=== PATIENT | female | born 1990 | race Caucasian/White ===

== ENCOUNTER 2023-04-09 20:10 | Observation (INO) | payer OTHER, SELFPAY ==
[2023-04-09 20:32] LABS: Absolute Lymphocytes (CBC) 1.5 K/uL (0.7-4.9); Lymphocytes % 20.5 % (15.3-44.8); MCV 84.8 fL (80-100); MPV 8.6 fL (7.6-11.3)
[2023-04-09] MEDS ORDERED: NA CHLORIDE 0.9% 1,000 ML ONE (20:54)
[2023-04-09] MEDS ORDERED: ONDANSETRON 4 MG/2 ML VIAL ONE (20:54)
[2023-04-09 21:05] LABS: ALT/SGPT 21 U/L (13-56); AST/SGOT 23 U/L (15-37); Albumin 3.8 g/dL (3.4-5.0); Alkaline Phosphatase 75 U/L (45-117); BUN Blood Urea Nitrogen 9 mg/dL (7-18); Bicarbonate 28 mEq/L (21-32); Bilirubin Direct 0.2 mg/dL (0-0.2); Bilirubin Indirect, Calculated 0.6 mg/dL (0.2-0.8); Bilirubin Total 0.8 mg/dL (0.2-1.0); Glomerular Filtration Rate 77 ml/min (=/>90); Glucose Level 96 mg/dL (74-106); Potassium 3.1 mEq/L (3.5-5.1); Sodium Level 146 mEq/L (136-145)
--- NOTE | 2023-04-09 21:09 | RAD REPORT ---
EXAM DESCRIPTION: CT - Head Brain Wo Cont - 04/09/2023 9:04 pm CLINICAL HISTORY: CONFUSED COMPARISON: HEAD BRAIN W O CONTRAST dated 09/11/2009 TECHNIQUE: All CT scans are performed using dose optimization technique as appropriate and may inclu de automated exposure control or mA/KV adjustment according to patient size. FINDINGS: No intracranial hemorrhage, hydrocephalus or extra-axial fluid collection.No areas of brai n edema or evidence of midline shift. The paranasal sinuses and mastoids are clear. The calvarium is intact. IMPRESSION: No acute intracranial abnormality.
[2023-04-09] MEDS ORDERED: NS KCL 20MEQ 1,000 ML IV ONE (21:47)
[2023-04-09] MEDS ORDERED: KCL 20 MEQ/100 mL IVPB 100 ML IV ONE (21:48)
[2023-04-09] MEDS ORDERED: NA CHLORIDE 0.9% 500 ML ONE (21:49)
[2023-04-09] MEDS ORDERED: NALOXONE HCL 2 MG/2 ML VIAL ONE (22:20)
[2023-04-09 22:21] LABS: Specific Gravity 1.026 (1.005-1.030)
[2023-04-09 22:22] LABS: Specific Gravity 1.026 (1.005-1.030); Urine Bacteria None Seen /HPF (<20); Urine Bilirubin NEGATIVE (Negative); Urine Blood Negative (Negative); Urine Clarity Clear (Clear); Urine Color Yellow (Yellow); Urine Glucose NEGATIVE (Negative); Urine Mucus Slight /HPF (None Seen); Urine Protein TRACE (Negative); Urine RBC <5 /HPF (None Seen); Urine Urobilinogen Normal (Normal); Urine pH 6.5 (5.0-7.0)
[2023-04-09] MEDS ORDERED: LORazepam 2 MG/ML VIAL ONE (22:30)
[2023-04-09 22:31] LABS: Barbiturates NEGATIVE (NEGATIVE); Benzodiazepines NEGATIVE (NEGATIVE); Cocaine NEGATIVE (NEGATIVE); METHAMPHETAM POSITIVE (NEGATIVE); Methadone NEGATIVE (NEGATIVE); Opiates NEGATIVE (NEGATIVE); Phencyclidine NEGATIVE (NEGATIVE); THC Cannibis POSITIVE (NEGATIVE)
[2023-04-09] MEDS ORDERED: ZIPRASIDONE MESYLA 20 MG/VIAL IM ONE (22:32)
[2023-04-09] MEDS ORDERED: WATER FOR INJ,STERILE 10 ML ONE (22:32)
--- NOTE | 2023-04-09 23:16 | P.HP ---
Certification for Inpatient Patient admitted to: Observation With expected LOS: <2 Midnights Patient will require the following post-hospital care: None Practitioner: I am a practitioner with admitting privileges, knowledge of patient current condition, hospital course, and medical plan of care. Services: Services provided to patient in accordance with Admission requirements found in Title 42 Section 412.3 of the Code of Federal Regulations Patient History Date of Service: 04/10/23 Reason for admission: altered mental status History of Present Illness: 32 yrs old Female presents to ER via EMS for drug intoxication, 32-year-old female presents with EMS for agitation and mental status changes. Family at bedside is primary historian reports she was pulled over for a traffic stop by the police at which time she proceeded to swallow a handful of some sort of pills. Patient refused to say what pills they were. After that patient developed agitation and then ultimately somnolence falling asleep on arrival to the emergency room. When patient is awake and she becomes agitated has incoherent. She was not able to provide HPI or review of systems. Patient's sister and is at bedside states that patient has a history of Xanax, Adderall, and history of methamphetamine abuse. Per family, Patient is reportedly losing weight recently and not acting herself. Most of medical record from ER documentation due to patient sedation. ER course Laboratory evaluation Hypernatremia at 146, potassium 3.1, CBC unremarkable, UA unremarkable, urine drug screen presumptive positive for methamphetamines, marijuana, because the patient responded to Narcan suspect fentanyl overdose. EKG sinus bradycardia at the rate of 50, EKG time 2028. Right atrial enlargement, and there is LVH. Otherwise normal EKG with no ectopy. VS Systolic 130's/70's, HR 50's, RR 15, 98% RA, she was given 1 L of normal saline, Zofran, Narcan 2 mg of which she responded with was very erratic, ER gave Ativan 2 mg, and Geodon 20 mg IM x1 Allergies No Known Allergies Allergy (Unverified 11/19/11 10:01) Home Medications: Vits W-Ca,Fe,FA(<1Mg) [] 1 PO DAILY 11/19/11 - Past Medical/Surgical History Diabetic: No -: HPI limited due to patient's sedation -: Polysubstance use -: Marijuana use -: Vape Past Surgical History: Reviewed- Non-Contributory - Social History Smoking therapy provided: No (Vape) Alcohol use: No CD- Drugs: No Caffeine use: Yes Review of Systems is unable to be obtained (Patient sedation) Physical Examination - Physical Exam General: Other (sedated, eyes open to verbal stimuli) HEENT: Atraumatic, Normocephalic Neck: 2+ carotid pulse no bruit, JVD not distended Respiratory: Clear to auscultation bilaterally, Normal air movement Cardiovascular: No edema, Normal pulses (sinus bradycardia) Capillary refill: <2 Seconds Gastrointestinal: Normal bowel sounds, No tenderness Musculoskeletal: No clubbing, No swelling Integumentary: No breakdown Neurological: Other (sedated) - Studies Laboratory Data (last 24 hrs) 04/09/23 20:20: WBC 7.10, Hgb 12.7, Hct 39.0, Plt Count 226 04/09/23 20:20: Sodium 146 H, Potassium 3.1 L, BUN 9, Creatinine 0.99, Glucose 96, Total Bilirubin 0.8, AST 23, ALT 21, Alkaline Phosphatase 75 Assessment and Plan - Plan Assessment plan Drug intoxication suspected fentanyl overdose-responded to Narcan in the ED Polysubstance use-presumptive positive for methamphetamines, THC, Sinus bradycardia Mild hyponatremia Mild hypokalemia DVT prophylaxis Assessment plan Drug intoxication suspected fentanyl overdose-O2 2 L keep sats greater than 92%, telemetry Polysubstance use-fall precautions Sinus bradycardia-telemetry DVT prophylaxis-Lovenox Diet n.p.o. Full code DVT Lovenox Discharge Plan: Home Plan to discharge in: 24 Hours - Advance Directives Does patient have a Living Will: No Does patient have a Durable POA for Healthcare: No - Code Status/Comfort Care Code Status Assessed: Yes Code Status: Full Code Physician Review: Patient Assessed, Agree with Above Assessment and Plan Critical Care: No Time Spent Managing Pts Care (In Minutes): 55
[2023-04-09] MEDS ORDERED: ONDANSETRON 4 MG/2 ML VIAL IV PRN (23:21)
--- NOTE | 2023-04-09 23:21 | EDPHYS ---
Physician Documentation [facility] Name: Mica Shultz Age: 32 yrs Sex: Female : 1990 Arrival Date: 04/09/2023 Time: 20:10 Bed 2 Private MD: ED Physician Delon Edwards HPI: 04/09 20:17 This 32 yrs old Female presents to ER via Unassigned with complaints of drug sp4 intoxication . 21:04 32-year-old female presents with EMS for agitation and mental status changes. Patient sp4 was pulled over for a traffic stop by the police at which time she proceeded to swallow a handful of some sort of pills. Patient would not say what pills they were. After that patient developed agitation and then ultimately somnolence falling asleep on arrival to the emergency room. When patient is awake and she becomes agitated has incoherent speech and is not able to provide HPI or review of systems. Patient's sister states that patient has a history of Xanax use also history of prescription Adderall use and also history of methamphetamine abuse. Patient is reportedly losing weight recently and not acting herself.. Historical: - Allergies: 20:23 No Known Allergies; ha1 - PMHx: 20:23 None; ha1 - Immunization history:: Adult Immunizations unknown. - Social history:: Patient/guardian denies using alcohol, street drugs, IV drugs, caffeine, over the counter diet medications, tobacco products, Smoking status: unknown. - Family history:: not pertinent. ROS: 21:04 Constitutional: full ROS unavailable secondary to agitation and mental status changes sp4 21:04 All other systems are negative. 21:04 Unable to obtain ROS due to altered mental status. Exam: 21:04 Constitutional: This is a well developed, thin female with a signs of weight loss, sp4 arrives somnolence but on awakening becomes agitated and is incoherent. Patient slumps back to sleep. Vital signs are stable on arrival. Oxygenation is stable. Patient not cooperative for full exam but is moving all extremities. Head/Face: Normocephalic, atraumatic. Eyes: Pupils equal round and reactive to light, pupils are constricted but reactive. Further exam is not possible. ENT: Nares patent. No nasal discharge, no septal abnormalities noted. Tympanic membranes are normal and external auditory canals are clear. Oropharynx with no redness, swelling, or masses, exudates, or evidence of obstruction, uvula midline. Mucous membranes moist. There is poor dentition Neck: Trachea midline, no thyromegaly or masses palpated, and no cervical lymphadenopathy. Supple, full range of motion without nuchal rigidity, or vertebral point tenderness. Chest/axilla: Normal chest wall appearance and motion. Nontender with no deformity. No lesions are appreciated. Cardiovascular: Regular bradycardia with a normal S1 and S2. No gallops, murmurs, or rubs. Normal PMI, no JVD. No pulse deficits. Respiratory: Lungs have equal breath sounds bilaterally, clear to auscultation and percussion. No rales, rhonchi or wheezes noted. No increased work of breathing, no retractions or nasal flaring. Abdomen/GI: Soft, non-tender, with normal bowel sounds. No distension or tympany. No guarding or rebound. No evidence of tenderness throughout. Back: No spinal tenderness. No costovertebral tenderness. Skin: Warm, dry with normal turgor. Normal color with no rashes, no lesions, and no evidence of cellulitis. MS/ Extremity: Pulses equal, no cyanosis. Neurovascular intact. Full, normal range of motion. Neuro: Patient presents with initial agitation and then developed somnolence. Full exam is not possible. Patient is moving all extremities grossly there is no sign of lateralizing neurologic deficits. Patient is incoherent in her speech 21:04 ECG was reviewed by the Attending Physician. The ED is sinus bradycardia at the rate of sp4 50, EKG time 2028. Right atrial enlargement, and there is LVH. Otherwise normal EKG with no ectopy. Vital Signs: 20:14 BP 139 / 74; Pulse 52; Resp 15 S; Temp 97.6; Pulse Ox 98% on R/A; Weight 45 kg; Height ha1 5 ft. 3 in. ; 21:00 BP 175 / 85; Pulse 54; Resp 13 S; Pulse Ox 100% on 2 lpm NC; ha1 21:30 BP 151 / 91; Pulse 57; Resp 13 S; Pulse Ox 100% on 2 lpm NC; ha1 22:10 BP 174 / 94; Pulse 56; Resp 13 S; Pulse Ox 100% on 2 lpm NC; ha1 22:49 BP 161 / 87; Pulse 60; Resp 18; Pulse Ox 100% on 2 lpm NC; ha1 23:10 BP 163 / 100; Pulse 75; Resp 15 S; Pulse Ox 100% on 2 lpm NC; ha1 23:30 BP 158 / 96; Pulse 63; Resp 18 S; Pulse Ox 100% on R/A; ha1 20:14 Body Mass Index 17.57 (45.00 kg, 160.02 cm) [facility] MDM: 20:18 Patient medically screened. sp4 23:18 Data reviewed: vital signs, nurses notes, EMS record, lab test result(s), EKG, sp4 radiologic studies, CT scan. Consideration of Admission/Observation Patient was admitted/placed on observation. Escalation of care including admission/observation considered. Management of patient was discussed with the following: Hospitalist: Discussed with admission team. ED course: Patient was given naloxone 2 mg IV and became very agitated after naloxone administration. Patient exhibited signs of opiate withdrawal. With suspect patient has ingested some fentanyl or some other opiate prior to arrival to the ER. Patient had to be given some lorazepam and Geodon for acute agitation associated with opiate withdrawal. Patient at this time should be admitted to the hospital for monitoring on telemetry floor with the nasal cannula oxygen support. Patient overall is hemodynamically stable.. . 04/09 20:18 Order name: Acetaminophen; Complete Time: : [facility] 04/09 20:18 Order name: Basic Metabolic Panel; Complete Time: : [facility] 04/09 20:18 Order name: CBC with Diff; Complete Time: 20:52 [facility] 04/09 20:18 Order name: ETOH Level; Complete Time: : [facility] 04/09 20:18 Order name: Hepatic Function; Complete Time: : [facility] 04/09 20:18 Order name: PT-INR [facility] 04/09 20:18 Order name: Test, Urine; Complete Time: 23:05 [facility] 04/09 20:18 Order name: Ptt, Activated [facility] 04/09 20:18 Order name: Salicylate; Complete Time: 21:31 [facility] 04/09 20:18 Order name: Urinalysis w/ reflexes; Complete Time: 23:05 [facility] 04/09 20:18 Order name: Urine Drug Screen; Complete Time: 23:05 [facility] 04/09 21:17 Order name: COVID-19 SARS RT PCR rv1 04/09 21:20 Order name: SARS-COV-2 RT PCR; Complete Time: 23:05 EDMS 04/09 23:23 Order name: Urinalysis w/ reflexes EDMS 04/09 23:23 Order name: CBC with Automated Diff EDMS 04/09 23:23 Order name: CBC with Automated Diff; Complete Time: 07:53 EDMS 04/09 23:23 Order name: Comprehensive Metabolic Panel EDMS 04/09 23:23 Order name: Comprehensive Metabolic Panel; Complete Time: 07:53 EDMS 04/09 23:23 Order name: Magnesium EDMS 04/09 23:23 Order name: Magnesium; Complete Time: 07:53 EDMS 04/09 23:23 Order name: Phosphorus EDMS 04/09 23:23 Order name: Phosphorus; Complete Time: 07:53 EDMS 04/09 20:34 Order name: CT Head Brain wo Cont; Complete Time: 21:31 sp4 04/09 20:18 Order name: EKG; Complete Time: 20:18 sp4 04/09 23:23 Order name: NPO EDAK 04/09 20:18 Order name: EKG - Nurse/Tech; Complete Time: 20:32 sp4 04/09 20:18 Order name: IV Saline Lock; Complete Time: 20:32 sp4 04/09 20:18 Order name: Labs collected and sent; Complete Time: 20:32 sp4 04/09 20:18 Order name: Montes; Complete Time: 22:51 sp4 EC:04 Rate is 50 beats/min. Rhythm is regular, Sinus bradycardia. QRS [place] is Normal. No ST sp4 changes noted. Clinical impression: No evidence of ischemia. Interpreted by me. Administered Medications: 20:47 Drug: NS 0.9% IV 1000 ml Route: IV; Rate: 1 bolus; Site: left forearm; ha1 20:48 Drug: Ondansetron IVP 4 mg Route: IVP; Site: left forearm; ha1 22:00 Drug: Potassium Chloride IV 20 mEq Route: IV; Rate: calculated rate; Site: left ha1 antecubital; 22:16 Drug: Naloxone IVP 2 mg Route: IVP; Site: left antecubital; 1 22:26 Drug: Ativan IVP 2 mg Route: IVP; Site: left antecubital; jb4 22:29 Drug: Geodon IM 20 mg Route: IM; Site: left vastus lateralis; ha1 23:45 Drug: NS 0.45 % with KCl IV 20 mEq/L 1000 ml Route: IV; Rate: 125 ml/hr; Site: left ha1 antecubital; Disposition Summary: 04/09/23 23:20 Hospitalization Ordered Hospitalization Status: Observation sp4 Provider: Aron Alves sp4 Condition: Fair sp4 Problem: new sp4 Symptoms: have improved sp4 Bed/Room Type: Standard sp4 Location: Telemetry/MedSurg (Inpatient)(04/10/23 23:34) mw Room Assignment: (04/10/23 23:34) Diagnosis - Opiate withdrawal, acute drug overdose, polysubstance abuse, methamphetamine abuse, sp4 cannabis abuse, altered mental status, psychomotor agitation requiring sedation Forms: - Medication Reconciliation Form sp4 - SBAR form sp4 Signatures: Dispatcher [employer] EDMS Rin Edwards RN RN mw Garcia, Cindy, RN RN cg Bryson, James, RN RN jb4 Millie Caraballo MD MD sd2 Shaye Ervin RN RN ha1 Delon Edwards MD MD sp4 Corrections: (The following items were deleted from the chart) 21:20 20:34 SARS-COV-2 Antigen Rapid+I.LAB.BRZ ordered. EDMS EDMS 23:35 23:20 Telemetry/MedSurg (observation) sp4 23:35 23:20 sp4 04/10 23:34 0712 23:35 BR ER HOLD cg 04/10 23:34 0712 23:35 ERHOLD- cg 04/10 23:34 23:34 Intensive Care Unit mw 23:34 23:34 8- mw mw
--- NOTE | 2023-04-09 23:21 | ER ---
Nurse's Notes [facility] Name: Mica Shultz Age: 32 yrs Sex: Female : 1990 Arrival Date: 04/09/2023 Time: 20:10 Bed 2 Private MD: Diagnosis: Opiate withdrawal, acute drug overdose, polysubstance abuse, methamphetamine abuse, cannabis abuse, altered mental status, psychomotor agitation requiring sedation Presentation: 04/09 20:14 Chief complaint: EMS states: 32 year old female got stopped by the police just like an ha1 hour ago. When the gift officer went into his car with her information the patient swallow a bunch of pills that she had in her car. we do not know what type of pills she took. Her vitals has been stable but her pupils are very dilated. Altered mental status. 20:14 Ebola Screen: No symptoms or risks identified at this time. Initial Sepsis Screen: Does ha1 the patient meet any 2 criteria? No. Patient's initial sepsis screen is negative. Does the patient have a suspected source of infection? No. Patient's initial sepsis screen is negative. Risk Assessment: Do you want to hurt yourself or someone else? Unable to obtain. Onset of symptoms was April 09, 2023. 20:14 Method Of Arrival: EMS: [facility] ha1 20:14 Acuity: SUZETTE 2 ha1 20:14 Coronavirus screen: Vaccine status:. ha1 Triage Assessment: 20:14 General: Appears uncomfortable, unkempt, malnourished, Behavior is agitated, anxious, ha1 combative. 20:14 Pain: Unable to use pain scale. FLACC scale score is 0 out of 10. Neuro: Level of ha1 Consciousness is awake, lethargic, Oriented to person. Cardiovascular: Heart tones S1 S2 present Patient's skin is warm and dry. Rhythm is sinus bradycardia. Respiratory: Airway is patent Respiratory effort is even, unlabored, Respiratory pattern is regular, symmetrical. GI: No signs and/or symptoms were reported involving the gastrointestinal system. Abdomen is flat, non-distended. : No signs and/or symptoms were reported regarding the genitourinary system. Derm: Skin is pale. Musculoskeletal: Circulation, motion, and sensation intact. Range of motion: intact in all extremities. Historical: - Allergies: 20:23 No Known Allergies; ha1 - PMHx: 20:23 None; ha1 - Immunization history:: Adult Immunizations unknown. - Social history:: Patient/guardian denies using alcohol, street drugs, IV drugs, caffeine, over the counter diet medications, tobacco products, Smoking status: unknown. - Family history:: not pertinent. Screenin:14 [facility] ED Fall Risk Assessment (Adult) History of falling in the last 3 months, ha1 including since admission Confusion or Disorientation Yes (5 pts) Intoxicated or Sedated Yes (3 pts) Impaired Gait No (0 pts) Mobility Assist Device Used No (0 pt) Altered Elimination Yes (1 pt) Score/Fall Risk Level 3 or more points = High Risk Oriented to surroundings, Maintained a safe environment, Educated pt \T\ family on fall prevention, incl call for assistance when getting out of bed, Assessed \T\ reinforced patient's understanding of fall precautions, Hourly rounding (assess needs \T\ fall precautionary measures) done. Nutritional screening: No deficits noted. Tuberculosis screening: No symptoms or risk factors identified. 04/10 00:13 Abuse screen:. ha1 Assessment: 04/09 20:14 Reassessment: see triage assessment. ha1 21:10 Reassessment: Patient and/or family updated on plan of care and expected duration. Pain ha1 level reassessed. eyes closed. family members at the bedside. 21:10 General: Appears comfortable, Behavior is calm. Respiratory: Airway is patent ha1 Respiratory effort is even, unlabored, Respiratory pattern is regular, symmetrical. 22:10 Reassessment: combative trying to pull her IV. Notified Dr. Silverman. ha1 22:10 Neuro: Level of Consciousness is awake. Respiratory: Airway is patent Respiratory ha1 effort is even, unlabored, Respiratory pattern is regular, symmetrical. 23:00 Reassessment: eyes closed. Respiratory: Airway is patent Respiratory effort is even, ha1 unlabored, Respiratory pattern is regular, symmetrical. Vital Signs: 20:14 BP 139 / 74; Pulse 52; Resp 15 S; Temp 97.6; Pulse Ox 98% on R/A; Weight 45 kg; Height ha1 5 ft. 3 in. ; 21:00 BP 175 / 85; Pulse 54; Resp 13 S; Pulse Ox 100% on 2 lpm NC; ha1 21:30 BP 151 / 91; Pulse 57; Resp 13 S; Pulse Ox 100% on 2 lpm NC; ha1 22:10 BP 174 / 94; Pulse 56; Resp 13 S; Pulse Ox 100% on 2 lpm NC; ha1 22:49 BP 161 / 87; Pulse 60; Resp 18; Pulse Ox 100% on 2 lpm NC; ha1 23:10 BP 163 / 100; Pulse 75; Resp 15 S; Pulse Ox 100% on 2 lpm NC; ha1 23:30 BP 158 / 96; Pulse 63; Resp 18 S; Pulse Ox 100% on R/A; ha1 20:14 Body Mass Index 17.57 (45.00 kg, 160.02 cm) ha1 ED Course: 20:14 Patient arrived in ED. rv1 20:14 Arm band placed on right wrist. ha1 20:14 Patient has correct armband on for positive identification. Placed in gown. Bed in low ha1 position. Call light in reach. Side rails up X2. 20:14 Maintain EMS IV. Dressing intact. Good blood return noted. Site clean \T\ dry. Gauge \T\ llanes 1 site: 20 left forearm. 20:17 Delon Edwards MD is Attending Physician. sp4 20:23 Triage completed. ha1 21:06 CT Head Brain wo Cont In Process Unspecified. EDMS 22:00 Montes cath inserted, using sterile technique, 18 Fr., by la, balloon inflated, to ha1 gravity drainage, urine specimen collected. 23:19 Aron Alves MD is Hospitalizing Provider. sp4 04/10 01:00 No provider procedures requiring assistance completed. Patient admitted, IV remains in ha1 place. 04:31 Shaye Ervin RN is Primary Nurse. ha1 04/11 00:41 Provided Education on: HEALTHY LIFESTYLE. rv Administered Medications: 04/09 20:47 Drug: NS 0.9% IV 1000 ml Route: IV; Rate: 1 bolus; Site: left forearm; ha1 20:48 Drug: Ondansetron IVP 4 mg Route: IVP; Site: left forearm; ha1 22:00 Drug: Potassium Chloride IV 20 mEq Route: IV; Rate: calculated rate; Site: left ha1 antecubital; 22:16 Drug: Naloxone IVP 2 mg Route: IVP; Site: left antecubital; ha1 22:26 Drug: Ativan IVP 2 mg Route: IVP; Site: left antecubital; jb4 22:29 Drug: Geodon IM 20 mg Route: IM; Site: left vastus lateralis; ha1 23:45 Drug: NS 0.45 % with KCl IV 20 mEq/L 1000 ml Route: IV; Rate: 125 ml/hr; Site: left ha1 antecubital; Medication: 04/10 01:00 VIS not applicable for this client. ha1 Outcome: 04/09 23:20 Decision to Hospitalize by Provider. sp4 04/10 01:00 Admitted to ER Hold. Please see [facility] for further documentation. ha1 Condition: stable Discharge instructions given to patient, family, Instructed on the need for admit, Demonstrated understanding of instructions. 04/11 00:42 Patient left the ED. rv Signatures: Dispatcher [employer] EDMS John Yates RN RN jb4 Irineo Patterson RN RN rv Shaye Ervin RN RN ha1 Dinorah Gray rv1 Delon Edwards MD MD sp4 Corrections: (The following items were deleted from the chart) 04/10 00:46 04/09 20:14 Chief complaint: EMS states: 32 year old female got stopped by the police ha1 just like an hour ago. When the gift officer went into his car with her information the patient swallow a bunch of pills that she had in her car. we do not know what type of pills she took. Her vitals has been stable but her pupils are very dilated. ha1
[2023-04-10 01:26] VITALS: BMI 17.2
[2023-04-10 02:14] LABS: Absolute Lymphocytes (CBC) 1.4 K/uL (0.7-4.9); Lymphocytes % 21.3 % (15.3-44.8); MCV 85.5 fL (80-100); RBC Red Blood Cell Count 4.33 M/uL (3.86-4.86)
[2023-04-10 02:22] LABS: Albumin 3.3 g/dL (3.4-5.0); Bilirubin Total 0.5 mg/dL (0.2-1.0); Magnesium 2.2 mg/dL (1.6-2.4); Phosphorus 3.1 mg/dL (2.5-4.9); Potassium 4.1 mEq/L (3.5-5.1); Protein, Total 6.1 g/dL (6.4-8.2)
[2023-04-10 03:14] LABS: Protime INR ND
[2023-04-10] MEDS ORDERED: ENOXAPARIN 40 MG/0.4 ML SQ SCH (09:00)
--- NOTE | 2023-04-10 15:44 | EKG ---
Test Date: 2023-04-09 Test Time: 20:29:26 Curriculum Supervisor: ELIOT MEASUREMENT RESULTS: Intervals: Rate: 50 NH: 102 QRSD: 94 QT: 508 QTc: 463 [place]: P: 77 NH: 102 QRS: 89 T: 59 INTERPRETIVE STATEMENTS: Sinus bradycardia with short NH Right atrial enlargement Moderate voltage criteria for LVH, may be normal variant Borderline ECG No previous ECG available for comparison Electronically Signed On 04-10-23 15:43:16 CDT by Blayne Odell
[2023-04-11 03:44] VITALS: TEMP 97.6
[2023-04-11 03:46] VITALS: O2SAT 100
--- NOTE | 2023-04-11 03:46 | P.DS ---
Admission Date: 04/09/23 Discharge Date: 04/11/23 Disposition: ROUTINE DISCHARGE Discharge Condition: GOOD Reason for Admission: altered mental status Brief History of Present Illness: 32 yrs old Female presents to ER via EMS for drug intoxication, 32-year-old female presents with EMS for agitation and mental status changes. Family at bedside is primary historian reports she was pulled over for a traffic stop by the police at which time she proceeded to swallow a handful of some sort of pills. Patient refused to say what pills they were. After that patient developed agitation and then ultimately somnolence falling asleep on arrival to the emergency room. When patient is awake and she becomes agitated has incoherent. She was not able to provide HPI or review of systems. Patient's sister and is at bedside states that patient has a history of Xanax, Adderall, and history of methamphetamine abuse. Per family, Patient is reportedly losing weight recently and not acting herself. Most of medical record from ER documentation due to patient sedation. ER course Laboratory evaluation Hypernatremia at 146, potassium 3.1, CBC unremarkable, UA unremarkable, urine drug screen presumptive positive for methamphetamines, marijuana, because the patient responded to Narcan suspect fentanyl overdose. EKG sinus bradycardia at the rate of 50, EKG time 2028. Right atrial enlargement, and there is LVH. Otherwise normal EKG with no ectopy. VS Systolic 130's/70's, HR 50's, RR 15, 98% RA, she was given 1 L of normal saline, Zofran, Narcan 2 mg of which she responded with was very erratic, ER gave Ativan 2 mg, and Geodon 20 mg IM x1 Hospital Course: Patient is awake and alert, vital signs stable, laboratory stable plan to discharge home follow-up with PCP with any issues or complaints educated on restraining from substance abuse. Patient verbalized understanding Vital Signs/Physical Exam: Temp Pulse Resp BP Pulse Ox 97.6 F 52 15 139/74 95 04/11/23 03:42 04/11/23 03:42 04/11/23 03:42 04/11/23 03:42 04/10/23 16:00 Laboratory Data at Discharge: WBC 6.50 thou/uL (4.3-10.9) 04/10/23 01:40 Hgb 11.9 g/dL (12.0-15.0) L 04/10/23 01:40 Hct 37.0 % (36.0-45.0) 04/10/23 01:40 Plt Count 235 thou/uL (152-406) 04/10/23 01:40 PT ND 04/09/23 20:20 INR ND 04/09/23 20:20 APTT ND 04/09/23 20:20 Sodium 147 mEq/L (136-145) H 04/10/23 01:40 Potassium 4.1 mEq/L (3.5-5.1) D 04/10/23 01:40 BUN 7 mg/dL (7-18) 04/10/23 01:40 Creatinine 0.75 mg/dL (0.55-1.02) 04/10/23 01:40 Glucose 100 mg/dL (74-106) 04/10/23 01:40 Phosphorus 3.1 mg/dL (2.5-4.9) 04/10/23 01:40 Magnesium 2.2 mg/dL (1.6-2.4) 04/10/23 01:40 Total Bilirubin 0.5 mg/dL (0.2-1.0) 04/10/23 01:40 AST 16 U/L (15-37) 04/10/23 01:40 ALT 20 U/L (13-56) 04/10/23 01:40 Alkaline Phosphatase 57 U/L (45-117) D 04/10/23 01:40 Home Medications: Vits W-Ca,Fe,FA(<1Mg) [] 1 PO DAILY 11/19/11
[2023-04-11 03:54] VITALS: BP 158/96
== END 2023-04-11 00:54 | disposition home or self-care (01) ==
LOC: ER 20:10 → ERHOLD 23:16
PROVIDERS: ADMIT Hospitalist; ATTEND Hospitalist
DX: R00.1 Bradycardia, unspecified (principal); F15.90 Other stimulant use, unspecified, uncomplicated; F12.90 Cannabis use, unspecified, uncomplicated; E87.6 Hypokalemia; E87.1 Hypo-osmolality and hyponatremia; F17.290 Nicotine dependence, other tobacco product, uncomplicated; Z20.822 Contact with and (suspected) exposure to COVID-19
CPT/HCPCS: 93005; 85025 ×2; 81001; 80048; 36415; 83735; 81025; 84100; 85610; 80076; 80053; 87635; 80307; 70450; 94760 ×2; 80143; 80179; 82077; J3480 ×2; J2310; J3486; J2405; J7040; J7030; 85730